=== PATIENT | female | born 1975 | race Caucasian/White ===

== ENCOUNTER 2018-09-16 07:25 | Outpatient (RCR) | payer OTHER | END 2018-09-20 | LOC: M OT 07:25 | PROVIDERS: ATTEND Family Medicine | DX: M25.522 Pain in left elbow (principal); M25.521 Pain in right elbow ==

== ENCOUNTER 2018-10-14 07:19 | Outpatient (RCR) | payer OTHER | END 2018-10-21 | LOC: M OT 07:19 | PROVIDERS: ATTEND Family Medicine | DX: Z51.89 Encounter for other specified aftercare (principal); M25.521 Pain in right elbow; M25.522 Pain in left elbow ==

== ENCOUNTER → 2019-01-08 | Outpatient (CLI) | payer OTHER ==
[~2019-01-08] MED LIST: PROHANCE 279.3MG/ML 15ML VIAL (A9576) As Ordered ONE
--- NOTE | 2019-01-08 10:14 | REP ---
Bilateral breast MRI study without and with IV gadolinium: History: Screening for high risk of breast cancer. Technique: 3 [facility] MRI imaging was performed with a dedicated breast coil. Axial, coronal, and sagittal T1 and T2-weighted scans were obtained with and without fat saturation in the usual fashion. The study includes dynamically acquired post gadolinium enhanced imaging subtraction imaging. Maximal intensity projection and multiplanar re-formation imaging is included as well. The study was interpreted with the aid of Eximia, an FDA approved computer-aided detection (CAD) software program, on a dedicated breast MRI work station. The gadolinium enhancement dose is 14 ml of intravenous ProHance. Findings: There is a moderate fibroglandular tissue pattern noted bilaterally and symmetrically. There is a mild pattern background parenchymal enhancement. There is no evidence of significant breast cystic change. No axillary lymphadenopathy is appreciated. High-resolution pre and postcontrast T1 and T2-weighted scans show no suspicious morphologic abnormality. There is no significant area of enhancement and washout in either breast on dynamically acquired post contrast images. Subtraction images show the background parenchymal enhancement pattern. No suspicious finding. Impression: BIRADS category one negative breast MRI study. Patient's whose estimated lifetime breast cancer risk assessment is greater than 20% merit annual screening breast MRI scanning in addition to annual screening mammography. Electronically Signed by Ray Patel MD 01/08/2019 07:36 P
== END ==
LOC: M RAD 08:00
PROVIDERS: ATTEND Internal Medicine Hematology & Oncology
DX: Z80.3 Family history of malignant neoplasm of breast (principal)

== ENCOUNTER → 2021-06-07 | Outpatient (REF) | LOC: M LABSMTC 10:20 | PROVIDERS: ATTEND Family Medicine | DX: Z11.52 Encounter for screening for COVID-19 (principal); Z20.822 Contact with and (suspected) exposure to COVID-19 ==